=== PATIENT | female | born 1990 | race Caucasian/White ===

== ENCOUNTER 2017-01-17 10:43 | Outpatient (CLI) | payer OTHER | END 2017-01-17 10:44 | disposition home or self-care (01) | DX: R63.5 Abnormal weight gain (principal); Z13.6 Encounter for screening for cardiovascular disorders; Z13.220 Encounter for screening for lipoid disorders ==

== ENCOUNTER 2018-06-04 09:21 | Outpatient (CLI) | payer OTHER | END 2018-06-04 09:22 | disposition home or self-care (01) | LOC: LAB.F 09:21 | PROVIDERS: ATTEND Registered Nurse | DX: N93.9 Abnormal uterine and vaginal bleeding, unspecified (principal) | CPT/HCPCS: 36415; 84702 ==

== ENCOUNTER 2018-06-05 07:30 | Outpatient (CLI) | payer OTHER | END 2018-06-05 07:31 | disposition home or self-care (01) | LOC: LAB.F 07:30 | PROVIDERS: ATTEND Registered Nurse | DX: N93.9 Abnormal uterine and vaginal bleeding, unspecified (principal) | CPT/HCPCS: 36415; 84702 ==

== ENCOUNTER 2018-06-06 08:59 | Outpatient (CLI) | payer OTHER | END 2018-06-06 09:00 | disposition home or self-care (01) | LOC: LAB.F 08:59 | PROVIDERS: ATTEND Registered Nurse | DX: N93.9 Abnormal uterine and vaginal bleeding, unspecified (principal) | CPT/HCPCS: 36415; 84702 ==

== ENCOUNTER 2018-06-13 09:51 | Outpatient (CLI) | payer OTHER ==
[2018-06-13 17:30] LABS: BASOPHILS % (AUTO) 0.5 %; EOSINOPHILS # (AUTO) 0.2 10^3/uL (0.0-0.7); EOSINOPHILS % (AUTO) 2.4 %; HGB - HEMOGLOBIN 14.2 g/dL (12.0-16.0); LYMPHOCYTES # (AUTO) 1.9 10^3/uL (1.5-3.5); LYMPHOCYTES % (AUTO) 27.5 %; MEAN CORPUSCULAR HEMOGLOBIN 32.5 pg (27.0-31.0); MEAN CORPUSCULAR HGB CONC 34.9 g/dL (32.0-36.0); MEAN CORPUSCULAR VOLUME 93.3 fL (81.0-99.0); MEAN PLATELET VOLUME 8.8 fL (7.9-10.8); MONOCYTES # (AUTO) 0.5 10^3/uL (0.0-1.0); MONOCYTES % (AUTO) 6.7 %; NEUTROPHILS # (AUTO) 4.4 10^3/uL (1.5-6.6); NEUTROPHILS % (AUTO) 62.9 %; PLT - PLATELET COUNT 308 10^3/uL (130-450); RED BLOOD COUNT 4.36 10^6/uL (4.20-5.40); RED CELL DISTRIBUTION WIDTH 12.8 % (12.0-15.0)
[2018-06-13 18:06] LABS: ALBUMIN 3.9 g/dL (3.2-5.5); ALBUMIN/GLOBULIN RATIO 1.2 (1.0-2.2); BILIRUBIN,TOTAL 0.6 mg/dL (0.2-1.0); CALCIUM 8.9 mg/dL (8.5-10.3); CREATININE 0.8 mg/dL (0.4-1.0); TOTAL PROTEIN 7.2 g/dL (6.7-8.2)
[2018-06-13 18:16] LABS: THYROID STIMULATING HORMONE 1.4 uIU/mL (0.34-5.60)
[2018-06-13 18:20] LABS: FREE T4 (FREE THYROXINE) 0.68 ng/dL (0.58-1.64)
== END 2018-06-13 09:52 | disposition home or self-care (01) ==
LOC: LAB.F 09:51
PROVIDERS: ATTEND Registered Nurse
DX: N93.9 Abnormal uterine and vaginal bleeding, unspecified (principal); R63.5 Abnormal weight gain
CPT/HCPCS: 36415; 80053; 81599; 84402; 84403; 84439; 84443; 84702; 85025

== ENCOUNTER 2019-11-12 17:06 | Outpatient (CLI) | payer OTHER ==
--- NOTE | 2019-11-16 06:03 | Ultrasound Report ---
Reason: PELVIC PAIN, POSITIVE URINE HCG Procedure Date: 11/12/2019 Accession Number: [id number] / [id number] Procedure: US - OB First Trimester CPT Code: Final Report FULL RESULT: EXAM: FIRST TRIMESTER OBSTETRIC ULTRASOUND (Less than 11 weeks) EXAM DATE: 11/12/2019 06:58 PM. CLINICAL HISTORY: Pelvic pain, positive urine HCG. LMP: 10/01/2019. COMPARISONS: None. TECHNIQUE: Transabdominal and transvaginal ultrasound examination with static image documentation. CLINICAL DATES: EGA 6 weeks 0 days with SHALINI 07/07/2020 based on LMP. ASSESSMENT: Gestational Sac: Single intrauterine. Embryo: CRL (crown-rump length) 4 mm = 6 weeks 1 day with an SHALINI of 07/06/2020. Cardiac activity: Faintly seen measuring 138 beats per minute. Yolk sac: 4 mm. Amniotic fluid: Not accurately assessed at this gestational age. Early placenta: Not visible at this gestational age. Other: No perigestational fluid collection demonstrated. MATERNAL STRUCTURES: Uterus: Anteverted. Unremarkable. Cervix: Closed. Right Ovary/Adnexa: The ovary measures 3.6 x 1.4 x 2.6 cm, volume 6.8 cc. Unremarkable. Left Ovary/Adnexa: The ovary measures 5.4 x 3.2 x 3.7 cm, volume 34.1 cc. Complex 1.1 x 1.2 x 1.2 cm debris-containing left ovarian cyst. Mild peripheral flow is noted. There is a hypoechoic septated left ovarian cyst measuring 4.5 x 2.9 x 3 cm. Septation remains thin. No obvious mural nodules. Free Fluid: None. Other: None. IMPRESSION: 1. Single viable intrauterine at EGA 6 weeks 1 day with SHALINI 07/06/2020 based on crown-rump length, which is concordant with clinical dates. 2. Assigned dating is SHALINI 07/07/2020 based on LMP. 3. No complications such as a subchorionic hemorrhage or complex adnexal mass. 4. Probable 1.2 cm left ovarian corpus luteum or hemorrhagic cyst. Septated 4.5 cm left ovarian cyst may be physiologic. No concerning features are noted. [facility]
== END 2019-11-12 17:07 | disposition home or self-care (01) ==
LOC: DI 17:06
PROVIDERS: ATTEND Nurse Practitioner Family
DX: O99.89 Other specified diseases and conditions complicating pregnancy, childbirth and the puerperium (principal); R10.2 Pelvic and perineal pain; Z3A.01 Less than 8 weeks gestation of pregnancy
CPT/HCPCS: 76801; 76817

== ENCOUNTER 2020-04-21 10:40 | Outpatient (CLI) | payer OTHER ==
[2020-04-21 15:47] LABS: HGB - HEMOGLOBIN 12.8 g/dL (12.0-16.0); MEAN CORPUSCULAR HEMOGLOBIN 32.8 pg (27.0-31.0); MEAN CORPUSCULAR HGB CONC 32.7 g/dL (32.0-36.0); MEAN CORPUSCULAR VOLUME 100.3 fL (81.0-99.0); MEAN PLATELET VOLUME 10.3 fL (7.9-10.8); RED BLOOD COUNT 3.9 10^6/uL (4.20-5.40); RED CELL DISTRIBUTION WIDTH 13.7 % (12.0-15.0); WHITE BLOOD COUNT 9.5 x10^3/uL (4.8-10.8)
== END 2020-04-21 10:41 | disposition home or self-care (01) ==
LOC: LAB.S 10:40
PROVIDERS: ATTEND Student in an Organized Health Care Education/Training Program
DX: O09.90 Supervision of high risk pregnancy, unspecified, unspecified trimester (principal)
CPT/HCPCS: 36415; 82950; 85027

== ENCOUNTER 2020-06-02 10:16 | Outpatient (CLI) | payer OTHER ==
[2020-06-02 15:27] LABS: BASOPHILS % (AUTO) 0.2 %; EOSINOPHILS # (AUTO) 0.1 10^3/uL (0.0-0.7); EOSINOPHILS % (AUTO) 0.7 %; HGB - HEMOGLOBIN 13.6 g/dL (12.0-16.0); LYMPHOCYTES # (AUTO) 1.2 10^3/uL (1.5-3.5); LYMPHOCYTES % (AUTO) 12.6 %; MEAN CORPUSCULAR HEMOGLOBIN 31.6 pg (27.0-31.0); MEAN CORPUSCULAR HGB CONC 32.2 g/dL (32.0-36.0); MEAN CORPUSCULAR VOLUME 97.9 fL (81.0-99.0); MEAN PLATELET VOLUME 9.9 fL (7.9-10.8); MONOCYTES # (AUTO) 0.5 10^3/uL (0.0-1.0); MONOCYTES % (AUTO) 5.3 %; NEUTROPHILS # (AUTO) 7.6 10^3/uL (1.5-6.6); NEUTROPHILS % (AUTO) 80.8 %; PLT - PLATELET COUNT 218 10^3/uL (130-450); RED BLOOD COUNT 4.31 10^6/uL (4.20-5.40); RED CELL DISTRIBUTION WIDTH 13.2 % (12.0-15.0); WHITE BLOOD COUNT 9.4 x10^3/uL (4.8-10.8)
[2020-06-02 15:44] LABS: URIC ACID 4.7 mg/dL (2.6-7.2)
[2020-06-02 15:48] LABS: CREATININE,URINE 190.9 mg/dL; PROTEIN/CREATININE RATIO,URINE 0.1 (<=0.2)
== END 2020-06-02 10:17 | disposition home or self-care (01) ==
LOC: LAB.S 10:16
PROVIDERS: ATTEND Student in an Organized Health Care Education/Training Program
DX: O16.9 Unspecified maternal hypertension, unspecified trimester (principal)
CPT/HCPCS: 36415; 82570; 83615; 84156; 84450; 84550; 85025

== ENCOUNTER 2020-06-17 16:37 | Outpatient (CLI) | payer OTHER ==
[2020-06-17 20:42] LABS: BASOPHILS % (AUTO) 0.2 %; EOSINOPHILS # (AUTO) 0.1 10^3/uL (0.0-0.7); EOSINOPHILS % (AUTO) 0.6 %; HGB - HEMOGLOBIN 14.1 g/dL (12.0-16.0); LYMPHOCYTES # (AUTO) 1.5 10^3/uL (1.5-3.5); LYMPHOCYTES % (AUTO) 13.2 %; MEAN CORPUSCULAR HEMOGLOBIN 32.6 pg (27.0-31.0); MEAN CORPUSCULAR HGB CONC 33.3 g/dL (32.0-36.0); MEAN CORPUSCULAR VOLUME 98.1 fL (81.0-99.0); MEAN PLATELET VOLUME 10.4 fL (7.9-10.8); MONOCYTES # (AUTO) 0.7 10^3/uL (0.0-1.0); NEUTROPHILS # (AUTO) 8.8 10^3/uL (1.5-6.6); NEUTROPHILS % (AUTO) 79.6 %; PLT - PLATELET COUNT 238 10^3/uL (130-450); RED BLOOD COUNT 4.32 10^6/uL (4.20-5.40); RED CELL DISTRIBUTION WIDTH 13.1 % (12.0-15.0); WHITE BLOOD COUNT 11.1 x10^3/uL (4.8-10.8)
[2020-06-17 20:52] LABS: ALBUMIN 3.1 g/dL (3.2-5.5); ALBUMIN/GLOBULIN RATIO 0.8 (1.0-2.2); BILIRUBIN,TOTAL 0.5 mg/dL (0.2-1.0); CREATININE 0.7 mg/dL (0.4-1.0); TOTAL PROTEIN 6.8 g/dL (6.7-8.2); URIC ACID 5.2 mg/dL (2.6-7.2)
[2020-06-17 20:55] LABS: CREATININE,URINE 168.8 mg/dL; PROTEIN/CREATININE RATIO,URINE 0.1 (<=0.2)
== END 2020-06-17 16:38 | disposition home or self-care (01) ==
LOC: LAB.S 16:37
PROVIDERS: ATTEND Student in an Organized Health Care Education/Training Program
DX: O16.9 Unspecified maternal hypertension, unspecified trimester (principal)
CPT/HCPCS: 36415; 80053; 82570; 84156; 84550; 85025

== ENCOUNTER 2021-08-31 08:54 | Outpatient (CLI) | payer OTHER | END 2021-08-31 08:55 | disposition home or self-care (01) | LOC: LAB.S 08:54 | DX: E88.81 Metabolic syndrome and other insulin resistance (principal); E16.1 Other hypoglycemia; E78.2 Mixed hyperlipidemia; R79.82 Elevated C-reactive protein (CRP); E27.8 Other specified disorders of adrenal gland; R79.89 Other specified abnormal findings of blood chemistry; N92.6 Irregular menstruation, unspecified; N20.0 Calculus of kidney; R82.998 Other abnormal findings in urine; O03.9 Complete or unspecified spontaneous abortion without complication; F45.8 Other somatoform disorders; R06.83 Snoring; Z80.3 Family history of malignant neoplasm of breast; Z80.0 Family history of malignant neoplasm of digestive organs; Z83.49 Family history of other endocrine, nutritional and metabolic diseases; Z3A.18 18 weeks gestation of pregnancy | CPT/HCPCS: 81599; 83520 ==